=== PATIENT | male | born 1965 | race Caucasian/White ===

== ENCOUNTER 2017-01-31 21:01 | Inpatient (IN) | payer OTHER ==
[~2017-01-31] VITALS: Ht 177.8 cm; Wt 128.1 kg
[~2017-01-31 21:01] MED LIST: ADULT LOW DOSE81 M1; BENEFIBER1 G2; PAXIL20 MG PO; Roxicet,Percocet 5/3 PO
[2017-01-31 21:46] LABS: HEMATOCRIT 42.2 % (38.0-50.0); MCH 28.4 PG (29.0-34.0); MCHC 34.8 G/DL (30.0-36.0); MCV 81.5 FL (86-99); MEAN PLAT.VOLUME 9.7 uM^3 (9.0-12.4); PLATELET COUNT 253 K/uL (156-360); RBC DIS.WIDTH-CV 12.2 % (11.8-14.6); RBC DIS.WIDTH-SD 36.2 % (39-53); RED BLOOD COUNT 5.18 M/uL (4.00-5.50)
[2017-01-31 22:03] LABS: CHLORIDE 105 mEq/L (99-109); POTASSIUM 4.1 mEq/L (3.7-5.4); SODIUM 137 mEq/L (136-147)
[2017-01-31 22:06] LABS: GLUCOSE 160 mg/dL (70-99)
[2017-01-31 22:07] LABS: ANION GAP 8 MEQ/L (2-14)
[2017-01-31 22:08] LABS: TOTAL BILIRUBIN 0.6 mg/dL (0.0-1.0)
[2017-01-31 22:09] LABS: ALKALINE PHOSPHATASE 80 IU/L (3-129); GFR ESTIMATE (CALCULATED) > 59 mL/min/
[2017-01-31 22:10] LABS: UREA NITROGEN (BUN) 21 mg/dL (9-23)
[2017-01-31 22:13] LABS: LIPASE 108 U/L (1.0-51.0)
[2017-02-01] MEDS ORDERED: PAROXETINE HCL30 MG PO (01:19)
[2017-02-01] MEDS ORDERED: VITAMIN C1000 MG PO (01:19)
[2017-02-01] MEDS ORDERED: SAW PALMETTO160 MG PO (01:20)
[2017-02-01] MEDS ORDERED: LO-DOSE ASPIRIN81 M2 PO (01:20)
[2017-02-01 02:08] LABS: ADD MIUA? NO; BILIRUBIN NEGATIVE; BLOOD NEGATIVE; COLOR YELLOW ((YELLOW)); GLUCOSE (STRIP) NEGATIVE; KETONES NEGATIVE; LEUKOCYTES NEGATIVE; NITRITE NEGATIVE; PROTEIN (STRIP) NEGATIVE; UCUL ADDED? NO; UROBILINOGEN 0.2 MG/DL (0.2-1.0)
[2017-02-01 02:41] LABS: SPECIFIC GRAVITY 1.063 (1.000-1.030)
[2017-02-01 13:05] VITALS: BP 131/64
[2017-02-01 19:39] VITALS: BP 135/82
[2017-02-01 23:40] VITALS: BP 119/59
[2017-02-02 03:56] VITALS: BP 129/74
[2017-02-02 06:22] LABS: EOSINOPHIL (%) 1.5 % (0-5); EOSINOPHIL COUNT 0.1 K/uL (0-0.3); HEMATOCRIT 38.7 % (38.0-50.0); IMMATURE GRANULOCYTE (%) 0.5 % (0.0-0.7); IMMATURE GRANULOCYTE COUNT 0.1 K/uL; INSTRUMENT ABS NEUTROPHIL CT 6.6 K/uL; LYMPHOCYTE COUNT 1.6 K/uL (1.0-2.8); MCH 28.6 PG (29.0-34.0); MCHC 34.6 G/DL (30.0-36.0); MCV 82.7 FL (86-99); MEAN PLAT.VOLUME 9.6 uM^3 (9.0-12.4); MONOCYTE (%) 12.1 % (3-12); MONOCYTE COUNT 1.2 K/uL (0-0.8); NEUTROPHIL (%) 68.5 % (45-76); NEUTROPHIL COUNT 6.6 K/uL (1.8-6.4); PLATELET COUNT 203 K/uL (156-360); RBC DIS.WIDTH-CV 12.2 % (11.8-14.6); RBC DIS.WIDTH-SD 36.8 % (39-53); RED BLOOD COUNT 4.68 M/uL (4.00-5.50); WHITE BLOOD COUNT 9.6 K/uL (4.1-10.2)
[2017-02-02 06:40] VITALS: BP 132/80
[2017-02-02 06:43] LABS: ANION GAP 9 MEQ/L (2-14); CHLORIDE 106 MEQ/L (99-109); GFR ESTIMATE (CALCULATED) > 59 mL/min/; POTASSIUM 4.3 MEQ/L (3.7-5.4); SAMPLE HEMOLYSIS CHECK 0; SAMPLE ICTERIC CHECK 0; SAMPLE LIPEMIA CHECK 0; SODIUM 140 MEQ/L (136-147); UREA NITROGEN (BUN) 14 mg/dL (9-23)
[2017-02-02 06:46] LABS: GLUCOSE 116 mg/dL (70-99)
[2017-02-02 11:37] VITALS: BP 136/72
[2017-02-02 15:32] VITALS: BP 141/87
[2017-02-03 00:34] VITALS: BP 151/56
[2017-02-03 04:42] VITALS: BP 111/59
[2017-02-03 07:02] VITALS: BP 119/68
[2017-02-03] MEDS ORDERED: FLAGYL500 MG PO (07:32)
[2017-02-03] MEDS ORDERED: CIPRO500 MG PO (07:32)
[2017-02-03] MEDS ORDERED: BENTYL20 MG PO (07:33)
[2017-02-03] MEDS ORDERED: ZOFRAN4 MG PO (07:33)
[2017-02-03 07:40] LABS: HEMATOCRIT 38.7 % (38.0-50.0); MCH 28.3 PG (29.0-34.0); MCHC 34.6 G/DL (30.0-36.0); MCV 81.6 FL (86-99); MEAN PLAT.VOLUME 9.8 uM^3 (9.0-12.4); PLATELET COUNT 236 K/uL (156-360); RBC DIS.WIDTH-SD 35.7 % (39-53); RED BLOOD COUNT 4.74 M/uL (4.00-5.50); WHITE BLOOD COUNT 6.8 K/uL (4.1-10.2)
[2017-02-03 08:05] LABS: ANION GAP 9 MEQ/L (2-14); CHLORIDE 103 MEQ/L (99-109); GFR ESTIMATE (CALCULATED) > 59 mL/min/; GLUCOSE 112 mg/dL (70-99); POTASSIUM 3.8 MEQ/L (3.7-5.4); SAMPLE HEMOLYSIS CHECK 0; SAMPLE ICTERIC CHECK 0; SAMPLE LIPEMIA CHECK 0; SODIUM 134 MEQ/L (136-147); UREA NITROGEN (BUN) 13 mg/dL (9-23)
[2017-02-03 11:26] LABS: C DIFF TOXIN NEGATIVE (NEGATIVE)
[2017-02-03 11:28] LABS: PROBE CHECK PASS; SPECIMEN PROCESSING CONTROL PASS
== END 2017-02-03 14:21 | disposition home or self-care (01) | DRG 392 ==
LOC: EME 21:01 → EDOF 02-01 02:21 → 2EAST 02-01 02:21
PROVIDERS: Hospitalist; Internal Medicine
DX: K57.20 Diverticulitis of large intestine with perforation and abscess without bleeding (principal); K56.0 Paralytic ileus; K76.0 Fatty (change of) liver, not elsewhere classified; Z79.82 Long term (current) use of aspirin; Z85.528 Personal history of other malignant neoplasm of kidney; Z79.899 Other long term (current) drug therapy; Z80.41 Family history of malignant neoplasm of ovary; Z80.52 Family history of malignant neoplasm of bladder; Z90.5 Acquired absence of kidney; R63.0 Anorexia
CPT/HCPCS: 74000; 74177; 80048; 80053; 81003; 83605; 83690; 85025; 85027; 87493; 99281; 99285; J0295; J1644; J1956; J2270; J2405; J3010; J7030; J7050; S0028; S0030

== ENCOUNTER 2017-02-19 10:35 | Emergency (ER) | payer OTHER ==
[~2017-02-19] VITALS: Ht 177.8 cm; Wt 123.6 kg
[~2017-02-19 10:35] MED LIST changes: +BENTYL20 MG PO; +CIPRO500 MG PO; +FLAGYL500 MG PO; +LO-DOSE ASPIRIN81 M2 PO; +PAROXETINE HCL30 MG PO; +SAW PALMETTO160 MG PO; +VITAMIN C1000 MG PO; +ZOFRAN4 MG PO
[2017-02-19 11:47] LABS: HEMATOCRIT 44.8 % (38.0-50.0); MCH 28.1 PG (29.0-34.0); MCHC 34.6 G/DL (30.0-36.0); MCV 81.3 FL (86-99); MEAN PLAT.VOLUME 10.1 uM^3 (9.0-12.4); PLATELET COUNT 267 K/uL (156-360); RBC DIS.WIDTH-CV 12.2 % (11.8-14.6); RBC DIS.WIDTH-SD 35.8 % (39-53); RED BLOOD COUNT 5.51 M/uL (4.00-5.50); WHITE BLOOD COUNT 11.3 K/uL (4.1-10.2)
[2017-02-19 11:51] LABS: CHLORIDE 101 mEq/L (99-109); POTASSIUM 4.1 mEq/L (3.7-5.4); SODIUM 136 mEq/L (136-147)
[2017-02-19 11:53] LABS: GLUCOSE 179 mg/dL (70-99)
[2017-02-19 11:55] LABS: ANION GAP 14 MEQ/L (2-14); TOTAL BILIRUBIN 0.7 mg/dL (0.0-1.0)
[2017-02-19 11:57] LABS: ALKALINE PHOSPHATASE 73 IU/L (3-129); GFR ESTIMATE (CALCULATED) 57 mL/min/
[2017-02-19 11:58] LABS: UREA NITROGEN (BUN) 19 mg/dL (9-23)
[2017-02-19 12:55] LABS: ADD MIUA? YES; BILIRUBIN NEGATIVE; BLOOD SMALL; COLOR YELLOW ((YELLOW)); GLUCOSE (STRIP) NEGATIVE; KETONES 5; LEUKOCYTES NEGATIVE; NITRITE NEGATIVE; PROTEIN (STRIP) 100; UROBILINOGEN 0.2 MG/DL (0.2-1.0)
[2017-02-19 13:00] LABS: BACTERIA NONE SEEN /HPF; CALCIUM OXALATE CRYSTALS 2+ /HPF; EPITHELIAL CELLS NONE SEEN /HPF; MUCUS 1+ /LPF; RED BLOOD CELLS 0-5 /HPF (0-5); UCUL ADDED? NO; WHITE BLOOD CELLS 0-5 /HPF (0-5)
[2017-02-19] MEDS ORDERED: FLAGYL500 MG PO (15:35)
[2017-02-19] MEDS ORDERED: BACTRIM,SEPT1 TABLET PO (15:35)
[2017-02-19] MEDS ORDERED: PERCOCET 5/31 TABLET PO (15:35)
[2017-02-19 16:10] VITALS: BP 133/71
== END 2017-02-19 16:11 | disposition home or self-care (01) ==
LOC: EME 10:35
DX: K57.32 Diverticulitis of large intestine without perforation or abscess without bleeding (principal); Z85.528 Personal history of other malignant neoplasm of kidney; Z90.5 Acquired absence of kidney
CPT/HCPCS: 74177; 80053; 81003; 85027; 99281; 99285; J2270; J2405; J7030

== ENCOUNTER 2017-02-20 14:20 | Inpatient (IN) | payer OTHER ==
[~2017-02-20] VITALS: Ht 177.8 cm; Wt 117.2 kg
[~2017-02-20 14:20] MED LIST changes: +BACTRIM,SEPT1 TABLET PO; +PERCOCET 5/31 TABLET PO
[2017-02-20 15:27] LABS: HEMATOCRIT 44.7 % (38.0-50.0); MCH 28.4 PG (29.0-34.0); MCHC 34.5 G/DL (30.0-36.0); MCV 82.3 FL (86-99); MEAN PLAT.VOLUME 9.8 uM^3 (9.0-12.4); PLATELET COUNT 235 K/uL (156-360); RBC DIS.WIDTH-CV 12.5 % (11.8-14.6); RBC DIS.WIDTH-SD 37.7 % (39-53); RED BLOOD COUNT 5.43 M/uL (4.00-5.50); WHITE BLOOD COUNT 8.8 K/uL (4.1-10.2)
[2017-02-20 15:38] LABS: CHLORIDE 103 mEq/L (99-109); SODIUM 138 mEq/L (136-147)
[2017-02-20 15:40] LABS: GLUCOSE 175 mg/dL (70-99)
[2017-02-20 15:41] LABS: ANION GAP 16 MEQ/L (2-14)
[2017-02-20 15:44] LABS: ALKALINE PHOSPHATASE 54 IU/L (3-129); GFR ESTIMATE (CALCULATED) 40 mL/min/
[2017-02-20 15:45] LABS: UREA NITROGEN (BUN) 24 mg/dL (9-23)
[2017-02-20 16:33] LABS: ADD MIUA? YES; BILIRUBIN SMALL; BLOOD NEGATIVE; COLOR AMBER ((YELLOW)); GLUCOSE (STRIP) 50; KETONES 5; LEUKOCYTES NEGATIVE; NITRITE NEGATIVE; PROTEIN (STRIP) >=500; SPECIFIC GRAVITY 1.039 (1.000-1.030); UROBILINOGEN 0.2 MG/DL (0.2-1.0)
[2017-02-20 16:49] LABS: BACTERIA 2+ /HPF; CASTS PRESENT /LPF; CRYSTALS NONE SEEN; EPITHELIAL CELLS RARE /HPF; FINE GRANULAR CASTS 0-5 /LPF; MUCUS 3+ /LPF; RED BLOOD CELLS 0-5 /HPF (0-5); UCUL ADDED? NO; WHITE BLOOD CELLS 0-5 /HPF (0-5)
[2017-02-20 17:20] VITALS: BP 136/74
[2017-02-20 18:52] VITALS: BP 103/51
[2017-02-20 22:50] VITALS: BP 113/64
[2017-02-21 03:30] VITALS: BP 116/58
[2017-02-21 06:19] LABS: HEMATOCRIT 36.7 % (38.0-50.0); MCH 28.6 PG (29.0-34.0); MCHC 34.3 G/DL (30.0-36.0); MCV 83.4 FL (86-99); RBC DIS.WIDTH-CV 13.1 % (11.8-14.6); WHITE BLOOD COUNT 8.5 K/uL (4.1-10.2)
[2017-02-21 06:37] LABS: ANION GAP 9 MEQ/L (2-14); CHLORIDE 106 MEQ/L (99-109); GLUCOSE 163 mg/dL (70-99); POTASSIUM 4.1 MEQ/L (3.7-5.4); SAMPLE HEMOLYSIS CHECK 0; SAMPLE ICTERIC CHECK 0; SAMPLE LIPEMIA CHECK 0; SODIUM 135 MEQ/L (136-147); UREA NITROGEN (BUN) 19 mg/dL (9-23)
[2017-02-21 06:40] LABS: GFR ESTIMATE (CALCULATED) > 59 mL/min/
[2017-02-21 07:32] VITALS: BP 143/80
[2017-02-21 07:59] LABS: MEAN PLAT.VOLUME 10.1 uM^3 (9.0-12.4); PLAT.SUFFICIENCY ADEQUATE
[2017-02-21 08:04] LABS: PLATELET COUNT 164 K/uL (156-360)
[2017-02-21 11:17] VITALS: BP 145/78
[2017-02-21 15:20] VITALS: BP 133/74
[2017-02-21 21:42] VITALS: BP 131/67
[2017-02-22 00:36] VITALS: BP 153/62
[2017-02-22 07:01] LABS: HEMATOCRIT 40.3 % (38.0-50.0); MCH 28.1 PG (29.0-34.0); MCHC 33.7 G/DL (30.0-36.0); MCV 83.3 FL (86-99); MEAN PLAT.VOLUME 10.3 uM^3 (9.0-12.4); RBC DIS.WIDTH-CV 12.8 % (11.8-14.6); RBC DIS.WIDTH-SD 38.7 % (39-53); RED BLOOD COUNT 4.84 M/uL (4.00-5.50); WHITE BLOOD COUNT 11.8 K/uL (4.1-10.2)
[2017-02-22 07:03] LABS: PLATELET COUNT 232 K/uL (156-360)
[2017-02-22 07:20] LABS: ALKALINE PHOSPHATASE 42 IU/L (3-129); ANION GAP 9 MEQ/L (2-14); CHLORIDE 100 MEQ/L (99-109); GFR ESTIMATE (CALCULATED) > 59 mL/min/; GLUCOSE 159 mg/dL (70-99); POTASSIUM 4.3 MEQ/L (3.7-5.4); SAMPLE HEMOLYSIS CHECK 0; SAMPLE ICTERIC CHECK 0; SAMPLE LIPEMIA CHECK 0; SODIUM 134 MEQ/L (136-147); TOTAL BILIRUBIN 0.9 MG/DL (0.0-1.0); UREA NITROGEN (BUN) 13 mg/dL (9-23)
[2017-02-22 07:25] LABS: ALKALINE PHOSPHATASE 39 IU/L (3-129); ANION GAP 8 MEQ/L (2-14); CHLORIDE 100 MEQ/L (99-109); DIRECT BILIRUBIN 0.3 mg/dL (0.0-0.3); GFR ESTIMATE (CALCULATED) > 59 mL/min/; GLUCOSE 156 mg/dL (70-99); MAGNESIUM 1.8 mg/dl (1.3-2.7); POTASSIUM 4.2 MEQ/L (3.7-5.4); PREALBUMIN 8.5 mg/dL (10-40); SAMPLE HEMOLYSIS CHECK 0; SAMPLE ICTERIC CHECK 0; SAMPLE LIPEMIA CHECK 0; SODIUM 133 MEQ/L (136-147); TOTAL BILIRUBIN 0.9 MG/DL (0.0-1.0); TRIGLYCERIDES 135 MG/DL (Normal: <150); UREA NITROGEN (BUN) 12 mg/dL (9-23)
[2017-02-22 07:29] VITALS: BP 133/82
[2017-02-22 07:32] LABS: ABS NEUTROPHIL COUNT 10.5; ATYPICAL LYMPHOCYTE 1.7 %; BAND NEUTROPHILS 4.3 % (0-8.0); EOSINOPHIL ABS CT 0; INSTRUMENT ABS NEUTROPHIL CT 9.5 K/uL; LYMPHOCYTES 4.4 % (15.0-45.0); METAMYELOCYTES 0.9 %; SEG.NEUTROPHILS 84.4 % (46.0-76.0)
[2017-02-22 11:18] VITALS: BP 130/76
[2017-02-22 20:52] VITALS: BP 136/90
[2017-02-22 23:45] VITALS: BP 143/83
[2017-02-23] VITALS (7 sets, daily range): BP systolic 132–150; BP diastolic 61–82
[2017-02-23 06:34] LABS: ANION GAP 10 MEQ/L (2-14); CHLORIDE 104 MEQ/L (99-109); GFR ESTIMATE (CALCULATED) > 59 mL/min/; GLUCOSE 208 mg/dL (70-99); MAGNESIUM 1.8 mg/dl (1.3-2.7); POTASSIUM 5.1 MEQ/L (3.7-5.4); SAMPLE HEMOLYSIS CHECK 0; SAMPLE ICTERIC CHECK 0; SAMPLE LIPEMIA CHECK 0; SODIUM 132 MEQ/L (136-147); UREA NITROGEN (BUN) 15 mg/dL (9-23)
[2017-02-23 07:41] LABS: HEMATOCRIT 40.6 % (38.0-50.0); MCH 27.6 PG (29.0-34.0); MCV 83.7 FL (86-99); RBC DIS.WIDTH-CV 12.8 % (11.8-14.6); RBC DIS.WIDTH-SD 39.2 % (39-53); RED BLOOD COUNT 4.85 M/uL (4.00-5.50); WHITE BLOOD COUNT 15.3 K/uL (4.1-10.2)
[2017-02-23 08:26] LABS: MEAN PLAT.VOLUME 10.7 uM^3 (9.0-12.4); PLAT.SUFFICIENCY ADEQUATE; PLATELET COUNT 230 K/uL (156-360)
[2017-02-24] VITALS (7 sets, daily range): BP systolic 143–174; BP diastolic 82–98
[2017-02-24 06:07] LABS: HEMATOCRIT 34.5 % (38.0-50.0); MCH 28.2 PG (29.0-34.0); MCHC 32.8 G/DL (30.0-36.0); MEAN PLAT.VOLUME 9.9 uM^3 (9.0-12.4); PLATELET COUNT 218 K/uL (156-360); RBC DIS.WIDTH-CV 12.9 % (11.8-14.6); RED BLOOD COUNT 4.01 M/uL (4.00-5.50); WHITE BLOOD COUNT 12.4 K/uL (4.1-10.2)
[2017-02-24 06:36] LABS: ANION GAP 13 MEQ/L (2-14); CHLORIDE 106 MEQ/L (99-109); GFR ESTIMATE (CALCULATED) > 59 mL/min/; GLUCOSE 200 mg/dL (70-99); MAGNESIUM 1.9 mg/dl (1.3-2.7); POTASSIUM 4.1 MEQ/L (3.7-5.4); SAMPLE HEMOLYSIS CHECK 0; SAMPLE ICTERIC CHECK 0; SAMPLE LIPEMIA CHECK 0; UREA NITROGEN (BUN) 17 mg/dL (9-23)
[2017-02-24 06:39] LABS: SODIUM 139 MEQ/L (136-147)
[2017-02-25 03:36] VITALS: BP 142/67
[2017-02-25 05:50] LABS: MCH 28.5 PG (29.0-34.0); MCHC 33.3 G/DL (30.0-36.0); MCV 85.5 FL (86-99); MEAN PLAT.VOLUME 9.5 uM^3 (9.0-12.4); PLATELET COUNT 239 K/uL (156-360); RBC DIS.WIDTH-CV 13.2 % (11.8-14.6); RBC DIS.WIDTH-SD 41.2 % (39-53); RED BLOOD COUNT 3.86 M/uL (4.00-5.50); WHITE BLOOD COUNT 12.4 K/uL (4.1-10.2)
[2017-02-25 06:19] LABS: POINT-OF-CARE METER ID UU13113725
[2017-02-25 06:20] LABS: ANION GAP 9 MEQ/L (2-14); CHLORIDE 105 MEQ/L (99-109); GFR ESTIMATE (CALCULATED) > 59 mL/min/; GLUCOSE 207 mg/dL (70-99); MAGNESIUM 1.9 mg/dl (1.3-2.7); POTASSIUM 3.9 MEQ/L (3.7-5.4); SAMPLE HEMOLYSIS CHECK 0; SAMPLE ICTERIC CHECK 0; SAMPLE LIPEMIA CHECK 0; SODIUM 139 MEQ/L (136-147); UREA NITROGEN (BUN) 16 mg/dL (9-23)
[2017-02-25 07:34] VITALS: BP 146/80
[2017-02-25 11:25] VITALS: BP 140/88
[2017-02-25 16:05] VITALS: BP 155/71
[2017-02-25 20:37] VITALS: BP 164/81
[2017-02-25 23:52] VITALS: BP 169/97
[2017-02-26 04:13] VITALS: BP 153/79
[2017-02-26 06:38] LABS: HEMATOCRIT 31.5 % (38.0-50.0); MCH 28.5 PG (29.0-34.0); MEAN PLAT.VOLUME 10.1 uM^3 (9.0-12.4); PLATELET COUNT 257 K/uL (156-360); RED BLOOD COUNT 3.75 M/uL (4.00-5.50); WHITE BLOOD COUNT 12.1 K/uL (4.1-10.2)
[2017-02-26 07:03] LABS: ANION GAP 9 MEQ/L (2-14); CHLORIDE 105 MEQ/L (99-109); GFR ESTIMATE (CALCULATED) > 59 mL/min/; GLUCOSE 175 mg/dL (70-99); MAGNESIUM 1.9 mg/dl (1.3-2.7); POTASSIUM 3.8 MEQ/L (3.7-5.4); PREALBUMIN 6.2 mg/dL (10-40); SAMPLE HEMOLYSIS CHECK 0; SAMPLE ICTERIC CHECK 0; SAMPLE LIPEMIA CHECK 0; SODIUM 139 MEQ/L (136-147); TRIGLYCERIDES 209 MG/DL (Normal: <150); UREA NITROGEN (BUN) 16 mg/dL (9-23)
[2017-02-26 08:26] LABS: ALKALINE PHOSPHATASE 43 IU/L (3-129); DIRECT BILIRUBIN 0.2 mg/dL (0.0-0.3); TOTAL BILIRUBIN 0.5 MG/DL (0.0-1.0)
[2017-02-26 08:46] VITALS: BP 137/83
[2017-02-26 10:08] LABS: C DIFF TOXIN NEGATIVE (NEGATIVE)
[2017-02-26 10:09] LABS: PROBE CHECK PASS; SPECIMEN PROCESSING CONTROL PASS
[2017-02-26 12:42] LABS: POINT-OF-CARE METER ID UU13113725
[2017-02-26 13:34] VITALS: BP 123/70
[2017-02-26 15:39] VITALS: BP 155/98
[2017-02-26 18:18] LABS: POINT-OF-CARE METER ID UU13113725
[2017-02-26 20:59] VITALS: BP 174/86
[2017-02-27 04:00] VITALS: BP 185/85
[2017-02-27 04:05] VITALS: BP 143/67
[2017-02-27 05:56] LABS: HEMATOCRIT 33.2 % (38.0-50.0); MCH 28.5 PG (29.0-34.0); MCHC 33.7 G/DL (30.0-36.0); MCV 84.5 FL (86-99); MEAN PLAT.VOLUME 10.2 uM^3 (9.0-12.4); NRBC (%) 0.1 /100 WBC (0-0); PLATELET COUNT 259 K/uL (156-360); RBC DIS.WIDTH-CV 12.8 % (11.8-14.6); RBC DIS.WIDTH-SD 39.3 % (39-53); RED BLOOD COUNT 3.93 M/uL (4.00-5.50); WHITE BLOOD COUNT 13.6 K/uL (4.1-10.2)
[2017-02-27 07:10] LABS: ANION GAP 11 MEQ/L (2-14); CHLORIDE 105 MEQ/L (99-109); GFR ESTIMATE (CALCULATED) > 59 mL/min/; GLUCOSE 212 mg/dL (70-99); POTASSIUM 3.7 MEQ/L (3.7-5.4); SAMPLE HEMOLYSIS CHECK 0; SAMPLE ICTERIC CHECK 0; SAMPLE LIPEMIA CHECK 0; SODIUM 137 MEQ/L (136-147); UREA NITROGEN (BUN) 13 mg/dL (9-23)
[2017-02-27 07:19] VITALS: BP 175/88
[2017-02-27 16:24] VITALS: BP 177/93
[2017-02-27 18:07] LABS: POINT-OF-CARE METER ID UU13113725
[2017-02-28] VITALS (7 sets, daily range): BP systolic 122–190; BP diastolic 76–113
[2017-02-28 06:46] LABS: HEMATOCRIT 30.1 % (38.0-50.0); MCH 28.1 PG (29.0-34.0); MCHC 34.2 G/DL (30.0-36.0); MEAN PLAT.VOLUME 10.1 uM^3 (9.0-12.4); PLATELET COUNT 305 K/uL (156-360); RBC DIS.WIDTH-CV 12.8 % (11.8-14.6); RBC DIS.WIDTH-SD 38.7 % (39-53); RED BLOOD COUNT 3.67 M/uL (4.00-5.50); WHITE BLOOD COUNT 14.4 K/uL (4.1-10.2)
[2017-02-28 07:06] LABS: ANION GAP 9 MEQ/L (2-14); CHLORIDE 105 MEQ/L (99-109); GFR ESTIMATE (CALCULATED) > 59 mL/min/; GLUCOSE 199 mg/dL (70-99); POTASSIUM 3.6 MEQ/L (3.7-5.4); SAMPLE HEMOLYSIS CHECK 0; SAMPLE ICTERIC CHECK 0; SAMPLE LIPEMIA CHECK 0; SODIUM 136 MEQ/L (136-147); UREA NITROGEN (BUN) 12 mg/dL (9-23)
[2017-02-28 07:38] LABS: Estimated Average Glucose 174 mg/dL (70-123); HEMOGLOBIN A1c (GLYCOHEMOGLOB) 7.7 % HGB (Below 5.7)
[2017-02-28 20:06] LABS: POINT-OF-CARE METER ID UU13113675
[2017-02-28 23:22] LABS: METH RESISTANT S AUREUS PCR NEGATIVE (NEGATIVE)
[2017-02-28 23:44] LABS: POINT-OF-CARE METER ID UU14208751; POINT-OF-CARE USER ID PHATLC
[2017-02-28 23:46] LABS: PROBE CHECK PASS; SPECIMEN PROCESSING CONTROL PASS
[2017-03-01] VITALS (18 sets, daily range): BP systolic 143–219; BP diastolic 87–118
[2017-03-01 05:03] LABS: HEMATOCRIT 34.5 % (38.0-50.0); MCH 27.8 PG (29.0-34.0); MCHC 33.6 G/DL (30.0-36.0); MCV 82.7 FL (86-99); MEAN PLAT.VOLUME 10.7 uM^3 (9.0-12.4); PLATELET COUNT 391 K/uL (156-360); RBC DIS.WIDTH-CV 13.2 % (11.8-14.6); RBC DIS.WIDTH-SD 39.7 % (39-53); RED BLOOD COUNT 4.17 M/uL (4.00-5.50); WHITE BLOOD COUNT 16.2 K/uL (4.1-10.2)
[2017-03-01 05:15] LABS: CHLORIDE 106 mEq/L (99-109); POTASSIUM 4.3 mEq/L (3.7-5.4); SODIUM 133 mEq/L (136-147)
[2017-03-01 05:16] LABS: MAGNESIUM 1.7 mg/dL (1.3-2.7)
[2017-03-01 05:17] LABS: GLUCOSE 289 mg/dL (70-99)
[2017-03-01 05:19] LABS: ANION GAP 7 MEQ/L (2-14)
[2017-03-01 05:21] LABS: GFR ESTIMATE (CALCULATED) > 59 mL/min/
[2017-03-01 05:22] LABS: UREA NITROGEN (BUN) 12 mg/dL (9-23)
[2017-03-01 07:53] LABS: SAMPLE HEMOLYSIS CHECK 0; SAMPLE ICTERIC CHECK 0; SAMPLE LIPEMIA CHECK 0
[2017-03-01 12:49] LABS: POINT-OF-CARE METER ID UU13113731
[2017-03-01 16:09] LABS: POINT-OF-CARE METER ID UU14162636
[2017-03-01 22:52] LABS: POINT-OF-CARE METER ID UU13113731
[2017-03-02] VITALS (12 sets, daily range): BP systolic 152–194; BP diastolic 81–108
[2017-03-02 04:36] LABS: HEMATOCRIT 31.1 % (38.0-50.0); MCHC 33.8 G/DL (30.0-36.0); MCV 82.9 FL (86-99); MEAN PLAT.VOLUME 10.7 uM^3 (9.0-12.4); PLATELET COUNT 442 K/uL (156-360); RBC DIS.WIDTH-CV 13.1 % (11.8-14.6); RBC DIS.WIDTH-SD 39.6 % (39-53); RED BLOOD COUNT 3.75 M/uL (4.00-5.50); WHITE BLOOD COUNT 17.7 K/uL (4.1-10.2)
[2017-03-02 04:46] LABS: CHLORIDE 106 mEq/L (99-109); POTASSIUM 4.1 mEq/L (3.7-5.4); SODIUM 138 mEq/L (136-147)
[2017-03-02 04:47] LABS: MAGNESIUM 1.6 mg/dL (1.3-2.7)
[2017-03-02 04:48] LABS: GLUCOSE 238 mg/dL (70-99)
[2017-03-02 04:49] LABS: ANION GAP 9 MEQ/L (2-14)
[2017-03-02 04:52] LABS: GFR ESTIMATE (CALCULATED) > 59 mL/min/
[2017-03-02 04:53] LABS: UREA NITROGEN (BUN) 14 mg/dL (9-23)
[2017-03-02 08:49] LABS: POINT-OF-CARE METER ID UU13113748
[2017-03-02 12:39] LABS: POINT-OF-CARE METER ID UU13113748
[2017-03-02 18:06] LABS: POINT-OF-CARE METER ID UU13113748
[2017-03-03] VITALS (16 sets, daily range): BP systolic 116–189; BP diastolic 66–102
[2017-03-03 00:55] LABS: POINT-OF-CARE METER ID UU14174217
[2017-03-03 05:43] LABS: POINT-OF-CARE METER ID UU14208751
[2017-03-03 05:50] LABS: HEMATOCRIT 28.3 % (38.0-50.0); MCH 27.5 PG (29.0-34.0); MCHC 32.5 G/DL (30.0-36.0); MCV 84.7 FL (86-99); MEAN PLAT.VOLUME 10.5 uM^3 (9.0-12.4); PLATELET COUNT 494 K/uL (156-360); RBC DIS.WIDTH-CV 13.2 % (11.8-14.6); RBC DIS.WIDTH-SD 40.3 % (39-53); RED BLOOD COUNT 3.34 M/uL (4.00-5.50); WHITE BLOOD COUNT 13.5 K/uL (4.1-10.2)
[2017-03-03 06:45] LABS: ANION GAP 9 MEQ/L (2-14); CHLORIDE 104 MEQ/L (99-109); GFR ESTIMATE (CALCULATED) > 59 mL/min/; GLUCOSE 185 mg/dL (70-99); POTASSIUM 3.7 MEQ/L (3.7-5.4); SAMPLE HEMOLYSIS CHECK 0; SAMPLE ICTERIC CHECK 0; SAMPLE LIPEMIA CHECK 0; SODIUM 139 MEQ/L (136-147); UREA NITROGEN (BUN) 13 mg/dL (9-23)
[2017-03-03 11:53] LABS: POINT-OF-CARE METER ID UU14208751
[2017-03-03 17:51] LABS: POINT-OF-CARE METER ID UU13113803
[2017-03-04] VITALS (8 sets, daily range): BP systolic 128–191; BP diastolic 62–89
[2017-03-04 06:48] LABS: ANION GAP 10 MEQ/L (2-14); CHLORIDE 107 MEQ/L (99-109); GFR ESTIMATE (CALCULATED) > 59 mL/min/; GLUCOSE 173 mg/dL (70-99); MAGNESIUM 1.9 mg/dl (1.3-2.7); POTASSIUM 4.2 MEQ/L (3.7-5.4); SAMPLE HEMOLYSIS CHECK 0; SAMPLE ICTERIC CHECK 0; SAMPLE LIPEMIA CHECK 0; SODIUM 139 MEQ/L (136-147); UREA NITROGEN (BUN) 17 mg/dL (9-23)
[2017-03-04 08:16] LABS: POINT-OF-CARE USER ID NUTSLF44
[2017-03-04 11:53] LABS: POINT-OF-CARE USER ID NUTSLF44
[2017-03-04 17:01] LABS: POINT-OF-CARE METER ID UU13113803; POINT-OF-CARE USER ID NUTSLF44
[2017-03-04 21:08] LABS: POINT-OF-CARE METER ID UU13113803
[2017-03-05] VITALS (8 sets, daily range): BP systolic 115–183; BP diastolic 54–84
[2017-03-05 06:07] LABS: EOSINOPHIL (%) 1.9 % (0-5); EOSINOPHIL COUNT 0.3 K/uL (0-0.3); HEMATOCRIT 19.7 % (38.0-50.0); IMMATURE GRANULOCYTE (%) 4.9 % (0.0-0.7); IMMATURE GRANULOCYTE COUNT 0.7 K/uL; INSTRUMENT ABS NEUTROPHIL CT 9.7 K/uL; LYMPHOCYTE COUNT 1.3 K/uL (1.0-2.8); MCH 28.6 PG (29.0-34.0); MCHC 33.5 G/DL (30.0-36.0); MCV 85.3 FL (86-99); MEAN PLAT.VOLUME 10.3 uM^3 (9.0-12.4); MONOCYTE (%) 11.7 % (3-12); MONOCYTE COUNT 1.6 K/uL (0-0.8); NEUTROPHIL (%) 71.6 % (45-76); NEUTROPHIL COUNT 9.7 K/uL (1.8-6.4); PLATELET COUNT 554 K/uL (156-360); RBC DIS.WIDTH-CV 13.2 % (11.8-14.6); RBC DIS.WIDTH-SD 41.1 % (39-53); WHITE BLOOD COUNT 13.6 K/uL (4.1-10.2)
[2017-03-05 06:11] LABS: RED BLOOD COUNT 2.31 M/uL (4.00-5.50)
[2017-03-05 06:16] LABS: ALKALINE PHOSPHATASE 45 IU/L (3-129); ANION GAP 9 MEQ/L (2-14); CHLORIDE 109 MEQ/L (99-109); DIRECT BILIRUBIN 0.1 mg/dL (0.0-0.3); GFR ESTIMATE (CALCULATED) > 59 mL/min/; GLUCOSE 195 mg/dL (70-99); MAGNESIUM 1.9 mg/dl (1.3-2.7); POTASSIUM 4.3 MEQ/L (3.7-5.4); PREALBUMIN 9.3 mg/dL (10-40); SAMPLE HEMOLYSIS CHECK 0; SAMPLE ICTERIC CHECK 0; SAMPLE LIPEMIA CHECK 0; SODIUM 139 MEQ/L (136-147); TRIGLYCERIDES 100 MG/DL (Normal: <150); UREA NITROGEN (BUN) 22 mg/dL (9-23)
[2017-03-05 06:18] LABS: TOTAL BILIRUBIN 0.3 MG/DL (0.0-1.0)
[2017-03-05 07:08] LABS: MCV 85.5 FL (86-99)
[2017-03-05 11:03] LABS: IMM.RETIC FRACTION 31.1 % (3-19); RETIC HGB EQUIVALENT 25.3 (28-36); RETICULOCYTE COUNT 2.1 % (0.5-1.8)
[2017-03-05 11:30] LABS: LACTATE DEHYDROGENASE 230 IU/L (20-246)
[2017-03-05 13:19] LABS: HEMATOCRIT 20.4 % (38.0-50.0); MCV 85.4 FL (86-99)
[2017-03-05 14:36] LABS: INTER. NORMALIZED RATIO 1.3; PROTHROMBIN TIME 14.2 SEC (10.2-12.9)
[2017-03-05 14:39] LABS: PTT 24.7 SEC (25-37)
[2017-03-05 16:24] LABS: POINT-OF-CARE METER ID UU13113781
[2017-03-05 20:12] LABS: MCV 85.3 FL (86-99)
[2017-03-05 21:21] LABS: POINT-OF-CARE METER ID UU13113781
[2017-03-06] VITALS (13 sets, daily range): BP systolic 114–141; BP diastolic 50–67
[2017-03-06 07:30] LABS: HEMATOCRIT 21.4 % (38.0-50.0); MCH 28.3 PG (29.0-34.0); MCHC 33.2 G/DL (30.0-36.0); MCV 85.3 FL (86-99); MEAN PLAT.VOLUME 10.1 uM^3 (9.0-12.4); PLATELET COUNT 556 K/uL (156-360); RBC DIS.WIDTH-SD 39.8 % (39-53); RED BLOOD COUNT 2.51 M/uL (4.00-5.50); WHITE BLOOD COUNT 13.3 K/uL (4.1-10.2)
[2017-03-06 09:10] LABS: ANION GAP 10 MEQ/L (2-14); CHLORIDE 110 MEQ/L (99-109); GFR ESTIMATE (CALCULATED) > 59 mL/min/; GLUCOSE 168 mg/dL (70-99); POTASSIUM 4.7 MEQ/L (3.7-5.4); SAMPLE HEMOLYSIS CHECK 0; SAMPLE ICTERIC CHECK 0; SAMPLE LIPEMIA CHECK 0; SODIUM 139 MEQ/L (136-147); UREA NITROGEN (BUN) 21 mg/dL (9-23)
[2017-03-06 09:30] LABS: URINE UREA NITROGEN 13872 MG/24 HR
[2017-03-06 21:24] LABS: POINT-OF-CARE METER ID UU13113725
[2017-03-07 00:32] VITALS: BP 109/55
[2017-03-07 05:15] LABS: POINT-OF-CARE METER ID UU13113725
[2017-03-07 06:28] LABS: HEMATOCRIT 21.5 % (38.0-50.0); MCH 28.3 PG (29.0-34.0); MCV 85.7 FL (86-99); PLATELET COUNT 588 K/uL (156-360); RBC DIS.WIDTH-CV 13.2 % (11.8-14.6); RBC DIS.WIDTH-SD 41.1 % (39-53); RED BLOOD COUNT 2.51 M/uL (4.00-5.50); WHITE BLOOD COUNT 12.9 K/uL (4.1-10.2)
[2017-03-07 06:53] LABS: ANION GAP 8 MEQ/L (2-14); CHLORIDE 107 MEQ/L (99-109); GFR ESTIMATE (CALCULATED) > 59 mL/min/; GLUCOSE 173 mg/dL (70-99); MAGNESIUM 2.1 mg/dl (1.3-2.7); POTASSIUM 4.4 MEQ/L (3.7-5.4); SAMPLE HEMOLYSIS CHECK 0; SAMPLE ICTERIC CHECK 0; SAMPLE LIPEMIA CHECK 0; SODIUM 136 MEQ/L (136-147); UREA NITROGEN (BUN) 20 mg/dL (9-23)
[2017-03-07 07:39] VITALS: BP 122/59
[2017-03-07 11:14] LABS: POINT-OF-CARE METER ID UU13113725
[2017-03-07 16:36] VITALS: BP 135/76
[2017-03-07 16:39] LABS: POINT-OF-CARE METER ID UU13113725
[2017-03-07 19:03] LABS: FERRITIN 338 NG/ML (22-322)
[2017-03-07 21:49] LABS: POINT-OF-CARE METER ID UU13113725
[2017-03-07 21:58] VITALS: BP 130/62
[2017-03-08 00:02] VITALS: BP 128/75
[2017-03-08 01:14] LABS: HAPTOGLOBIN+ 324 mg/dL (43-212)
[2017-03-08 03:44] VITALS: BP 175/77
[2017-03-08 05:47] LABS: ADD MIUA? NO; BILIRUBIN NEGATIVE; BLOOD NEGATIVE; COLOR YELLOW ((YELLOW)); GLUCOSE (STRIP) NEGATIVE; KETONES NEGATIVE; LEUKOCYTES NEGATIVE; NITRITE NEGATIVE; PROTEIN (STRIP) NEGATIVE; SPECIFIC GRAVITY 1.014 (1.000-1.030); UROBILINOGEN 0.2 MG/DL (0.2-1.0)
[2017-03-08 06:34] LABS: HEMATOCRIT 21.5 % (38.0-50.0); MCH 27.9 PG (29.0-34.0); MCHC 32.6 G/DL (30.0-36.0); MCV 85.7 FL (86-99); MEAN PLAT.VOLUME 9.9 uM^3 (9.0-12.4); PLATELET COUNT 575 K/uL (156-360); RBC DIS.WIDTH-CV 13.2 % (11.8-14.6); RBC DIS.WIDTH-SD 41.1 % (39-53); RED BLOOD COUNT 2.51 M/uL (4.00-5.50); WHITE BLOOD COUNT 11.9 K/uL (4.1-10.2)
[2017-03-08 07:01] LABS: POINT-OF-CARE METER ID UU13113725
[2017-03-08 07:18] LABS: ANION GAP 10 MEQ/L (2-14); CHLORIDE 106 MEQ/L (99-109); GFR ESTIMATE (CALCULATED) > 59 mL/min/; GLUCOSE 139 mg/dL (70-99); POTASSIUM 4.7 MEQ/L (3.7-5.4); SAMPLE HEMOLYSIS CHECK 0; SAMPLE ICTERIC CHECK 0; SAMPLE LIPEMIA CHECK 0; SODIUM 137 MEQ/L (136-147); UREA NITROGEN (BUN) 14 mg/dL (9-23)
[2017-03-08 07:27] LABS: MAGNESIUM 1.7 mg/dl (1.3-2.7)
[2017-03-08 08:19] VITALS: BP 143/68
[2017-03-08 11:20] LABS: POINT-OF-CARE METER ID UU13113725
[2017-03-08 11:30] VITALS: BP 155/75
[2017-03-08] MEDS ORDERED: LEVOFLOXACIN750 MG PO (13:38)
[2017-03-08] MEDS ORDERED: NIFEREX-150,FE150 MG PO (13:39)
[2017-03-08] MEDS ORDERED: LABETALOL HCL200 MG PO (13:39)
[2017-03-08] MEDS ORDERED: ZOLPIDEM TARTRAT5 MG PO (13:39)
[2017-03-08] MEDS ORDERED: OXYCODONE HCL5 MG PO (13:39)
[2017-03-08] MEDS ORDERED: RISPERIDONE1 MG PO (13:39)
[2017-03-08] MEDS ORDERED: GLUCOPHAGE500 MG PO (13:55)
== END 2017-03-08 16:07 | disposition home or self-care (01) | DRG 329 ==
LOC: EME 14:20 → ENRESERV 14:57 → EME 15:04 → EDOF 15:12 → 5EAST 15:12 → ENRESERV 16:14 → 5EAST 17:06 → ENRESERV 02-28 18:58 → 4WEST 02-28 20:46 → ENRESERV 03-03 11:36 → 4EAST 03-03 12:09 → ENRESERV 03-06 14:29 → 5EAST 03-06 20:09 → ENPENDDIS 03-08 → 5EAST 03-08 16:07
PROVIDERS: Emergency Medicine; Family Medicine; Internal Medicine; Internal Medicine Critical Care Medicine; Physician Assistant; Surgery
DX: K57.20 Diverticulitis of large intestine with perforation and abscess without bleeding (principal); K65.0 Generalized (acute) peritonitis; K56.60 Unspecified intestinal obstruction; K56.7 Ileus, unspecified; E87.8 Other disorders of electrolyte and fluid balance, not elsewhere classified; E11.65 Type 2 diabetes mellitus with hyperglycemia; K56.5 Intestinal adhesions [bands] with obstruction (postinfection); K65.9 Peritonitis, unspecified; D64.9 Anemia, unspecified; D53.9 Nutritional anemia, unspecified; I87.8 Other specified disorders of veins; F40.240 Claustrophobia; E78.5 Hyperlipidemia, unspecified; R41.0 Disorientation, unspecified; E83.51 Hypocalcemia; I10 Essential (primary) hypertension; E86.0 Dehydration; F41.9 Anxiety disorder, unspecified; F32.9 Major depressive disorder, single episode, unspecified; R60.1 Generalized edema; K76.0 Fatty (change of) liver, not elsewhere classified; E66.9 Obesity, unspecified; K91.3 Postprocedural intestinal obstruction; R11.2 Nausea with vomiting, unspecified; E43 Unspecified severe protein-calorie malnutrition; R19.7 Diarrhea, unspecified; R18.8 Other ascites; G47.33 Obstructive sleep apnea (adult) (pediatric); Z85.46 Personal history of malignant neoplasm of prostate; Z53.31 Laparoscopic surgical procedure converted to open procedure; Z90.5 Acquired absence of kidney; Z79.899 Other long term (current) drug therapy; Z85.528 Personal history of other malignant neoplasm of kidney; Z72.820 Sleep deprivation; Z68.38 Body mass index [BMI] 38.0-38.9, adult
CPT/HCPCS: 74177; 76937; 80048; 80053; 80076; 81003; 81050; 82040; 82248; 82272; 82607; 82728; 82746; 82948; 83010 90; 83036; 83615; 83735; 84100; 84134; 84478; 84540; 84630 90; 85014; 85018; 85025; 85027; 85045; 85610; 85730; 86900; 86901; 86920; 87040; 87070; 87075; 87077; 87147; 87186; 87205; 87493; 87641; 88307; 93005; 94799; 99281; 99285; C1894; J0131; J0290; J0330; J0360; J0881; J1100; J1170; J1450; J1630; J1650; J1815; J1956; J2060; J2250; J2270; J2405; J2543; J2710; J3010; J3475; J3480; J7030; J7050; J7120; P9016

== ENCOUNTER → 2017-03-13 | Outpatient (CLI) | payer OTHER ==
[~2017-03-13] MED LIST changes: +GLUCOPHAGE500 MG PO; +LABETALOL HCL200 MG PO; +LEVOFLOXACIN750 MG PO; +NIFEREX-150,FE150 MG PO; +OXYCODONE HCL5 MG PO; +RISPERIDONE1 MG PO; +ZOLPIDEM TARTRAT5 MG PO
== END | disposition home or self-care (01) ==
LOC: AMB 13:44
DX: Z09 Encounter for follow-up examination after completed treatment for conditions other than malignant neoplasm (principal); R42 Dizziness and giddiness; E11.9 Type 2 diabetes mellitus without complications; Z79.84 Long term (current) use of oral hypoglycemic drugs; R53.83 Other fatigue; H53.2 Diplopia; Z86.19 Personal history of other infectious and parasitic diseases
CPT/HCPCS: 99212